=== PATIENT | female | born 1985 | race American Indian/Alaskan Native ===

== ENCOUNTER 2017-02-13 11:41 | Emergency (ER) | payer MEDICAID ==
[2017-02-13 12:37] LABS: Basophils % (Auto) 0.3 % (0.0-1.8); Eosinophils % (Auto) 1.7 % (0.0-4.3); Hematocrit 34.9 % (30.3-42.9); Hemoglobin 11.6 gm/dl (10.1-14.3); Mean Corpuscular HGB Conc 33 % (30-34); Mean Corpuscular Hemoglobin 30 pg (28-32); Mean Corpuscular Volume 91 fl (79-97); Platelet Count 253 K/mm3 (140-440); Red Blood Count 3.83 M/mm3 (3.65-5.03); Red Cell Distribution Width 14.4 % (13.2-15.2); White Blood Count 10.5 K/mm3 (4.5-11.0)
[2017-02-13 12:44] LABS: Amylase 65 units/L (27-131); Anion Gap 18 mmol/L; BUN/Creatinine Ratio 11.42; Blood Urea Nitrogen 8 mg/dL (7-17); Calcium 9.1 mg/dL (8.4-10.2); Carbon Dioxide 19 mmol/L (22-30); Chloride 104.3 mmol/L (98-107); Glucose 98 mg/dL (65-100); Lipase 24 units/L (13-60); Potassium 3.4 mmol/L (3.6-5.0); Sodium 138 mmol/L (137-145)
--- NOTE | 2017-02-13 12:52 | Emergency Department Report ---
Entered by JEMMA DE LEON, acting as scribe for VENKATA MARTIN PA. Chief Complaint: Abdominal Pain Stated Complaint: 17 WKS /SHARP ABD PAIN Time Seen by Provider: 02/13/17 11:58 - HPI History of Present Illness: 31 y/o female presents c/o sharp, intermittent abd pain that started 4 days ago. Pt denies vaginal bleeding or discharge and bleeding during urination. She has one previous and is currently 17 weeks . - ROS Review of Systems: as noted in HPI - Exam Vital Signs: Vital Signs 02/13/17 11:52 Temperature 98.4 F Pulse Rate 109 H Respiratory 20 Rate Blood Pressure 118/80 O2 Sat by Pulse 98 Oximetry General: [31-year-old female] in no acute distress. Well-developed, well- nourished. CV: Regular rate and rhythm. No murmurs rubs or gallops. Lungs: Clear to auscultation bilaterally. Abdomen: No tenderness to palpation. No guarding or rebound tenderness. Normal bowel sounds. Mini Neuro: Alert and oriented 3. MSE screening note: Focused history and physical exam performed. Due to findings the following was ordered: ED Disposition for MSE Condition: Stable Instructions: Abdominal Pain (ED) This documentation as recorded by the scribe,JEMMA DE LEON,accurately reflects the service I personally performed and the decisions made by ,VENKATA MARTIN PA.
[2017-02-13 13:22] LABS: Bacteria,Urine 1+ /HPF (Negative); Bilirubin,Urine NEG (Negative); Blood,Urine MOD (Negative); Ketones,Urine 20 mg/dL (Negative); Leukocyte Esterase,Urine MOD (Negative); Mucus,Urine 3+ /HPF; Nitrite,Urine NEG (Negative); Urobilinogen,Urine < 2.0 mg/dL (<2.0)
--- NOTE | 2017-02-13 15:07 | Ultrasound Report ---
FINAL REPORT EXAM: US OB \T\gt; = 14 WEEKS FETUS HISTORY: abdominal pain TECHNIQUE: Ultrasound evaluation of the gravid uterus PRIORS: None. FINDINGS: There is a single viable intrauterine with documented cardiac activity. Multiple ultrasound measurements are made to determine a composite gestational age. Nonspecific borderline low HC/AC ratio of 1.06, lower limits 1.07. ratios are otherwise within normal limits. There is no evidence of placenta previa or abruption. The maternal cervix is closed. The quantity of visualized amniotic fluid appears grossly normal. No sonographic abnormality in the visualized portion of the anatomy. Heart rate: 153 beats per minute position: Breech Placental position: Posterior, grade 0 Maternal cervix length: 3.7cm Estimated weight: 222 g Growth percentile by ultrasound: 83 Ultrasound estimated gestational age: 17 weeks 5 days Ultrasound estimated delivery date: 07/19/2017 LMP estimated gestational age: 17 weeks 3 days LMP estimated delivery date: 07/21/2017 IMPRESSION: Single viable intrauterine with the above parameters Borderline low HC/AC ratio. Other ratios are normal Breech presentation
--- NOTE | 2017-02-13 18:13 | Emergency Department Report ---
HPI - General Chief Complaint: Abdominal Pain Time Seen by Provider: 02/13/17 11:58 - HPI HPI: This is a 31-year-old Afro-I[place]ian female presents to the emergency department with complaint of abdominal pain at about 17 weeks . The patient is with 2 previous miscarriages. Her [facility] [employer] group is [facility]. She's been having intermittent cramping over the past few weeks but had some sharp pain for the past 5 days. She denies any vaginal bleeding, discharge, dysuria, back pain, fever or any vomiting. She has a past medical history of HPV. Her previous was a vaginal delivery. She is not taken anything for symptoms prior to presentation. No recent travel or sick contacts at home. ED Past Medical Hx - Past Medical History Previous Medical History?: Yes Additional medical history: HPV, Vaginal delivery, "Swine flu during " - Surgical History Past Surgical History?: No - Social History Smoking Status: Former Smoker Substance Use Type: Alcohol, Non Opiate Pain, Prescribed - Medications Home Medications: Home Medications Medication Instructions Recorded Confirmed Last Taken Type Melatonin/Pyridoxine [Melatonin 3 1 each PO QHS #30 tablet 11/09/15 Unknown Rx mg Tablet] Multivitamin with Folic Acid [One 400 mcg PO QDAY #30 tablet 11/09/15 Unknown Rx Daily Multivitamin Tablet] Metoclopramide [Reglan] 10 mg PO QID PRN #15 tab 12/16/16 Unknown Rx ED Review of Systems ROS: Stated complaint: 17 WKS /SHARP ABD PAIN Other details as noted in HPI Comment: All other systems reviewed and negative Constitutional: denies: chills, fever Eyes: denies: eye pain, eye discharge, vision change ENT: denies: ear pain, throat pain Respiratory: denies: cough, shortness of breath, wheezing Cardiovascular: denies: chest pain, palpitations Gastrointestinal: abdominal pain. denies: vomiting Genitourinary: denies: dysuria, hematuria, discharge Musculoskeletal: denies: back pain, joint swelling, arthralgia Skin: denies: rash, lesions Neurological: denies: headache, weakness, paresthesias Physical Exam - Physical Exam Vital Signs: Vital Signs 02/13/17 11:52 Temperature 98.4 F Pulse Rate 109 H Respiratory 20 Rate Blood Pressure 118/80 O2 Sat by Pulse 98 Oximetry Physical Exam: GENERAL: The patient is well-developed well-nourished. HEENT: Normocephalic. Atraumatic. Extraocular motions are intact. Patient has moist mucous membranes. Pupils equal reactive to light bilaterally. NECK: Supple. Trachea is midline.. CHEST/LUNGS: Clear to auscultation. There is no respiratory distress noted. HEART/CARDIOVASCULAR: Regular. There is no tachycardia. There is no gallop rub or murmur. ABDOMEN: Abdomen is soft. No abdominal pain to palpation. There is a gravid uterus palpable a few centimeters below the umbilicus. Patient has normal bowel sounds. There is no abdominal distention. SKIN: Skin is warm and dry. NEURO: The patient is awake, alert, and oriented. The patient is cooperative. The patient has no focal neurologic deficits. The patient has normal speech. MUSCULOSKELETAL: There is no tenderness or deformity. There is no limitation range of motion. There is no evidence of acute injury. ED Course Vital Signs 02/13/17 11:52 Temperature 98.4 F Pulse Rate 109 H Respiratory 20 Rate Blood Pressure 118/80 O2 Sat by Pulse 98 Oximetry ED Medical Decision Making - Lab Data Result diagrams: 02/13/17 12:15 02/13/17 12:15 - Radiology Data Radiology results: report reviewed Ultrasound evaluation of the uterus shows a single viable intrauterine . Breech presentation. Heart rate 153 bpm. - Medical Decision Making 31 year old female presents with some abdominal pain over the past week or so I' ll . Ultrasound confirms a viable intrauterine. Patient has no dysuria, vaginal bleeding or discharge. Patient had a CBC, CMP and urinalysis that did not show any signs of infection the blood in the urine or any other significant abnormalities. Vital signs stable throughout her ED course. Patient currently asymptomatic. She has good follow-up with [employer]. She will be discharged home to follow-up with the [employer], to take Tylenol as needed for discomfort, and to return to the ER with any worsening of her symptoms or any acute distress. - Differential Diagnosis , threatened miscarriage, UTI, spontaneous , fibroids, col Critical Care Time: No Critical care attestation.: If time is entered above; I have spent that time in minutes in the direct care of this critically ill patient, excluding procedure time. ED Disposition Clinical Impression: Qualifiers: Weeks of gestation: 17 weeks Qualified Code(s): Z3A.17 - 17 weeks gestation of Abdominal pain Qualifiers: Abdominal location: unspecified location Qualified Code(s): R10.9 - Unspecified abdominal pain Disposition: DISCHARGED TO HOME OR SELFCARE Is pt being admited?: No Condition: Stable Instructions: Abdominal Pain (ED), (ED) Additional Instructions: Please follow-up with your [employer] in the next few days. Continue with your vitamins. He can take Tylenol every 4 hours, using weight-based dosing , as needed for discomfort. Return to the emergency department with any worsening of your symptoms or any acute distress. Referrals: PRIMARY CARE, [Primary Care Provider] - 3-5 Days [facility] [Provider Group] - 3-5 Days Time of Disposition: 18:13
[2017-02-13 18:37] VITALS: BP 121/57
== END 2017-02-13 18:44 | disposition home or self-care (01) ==
LOC: ED 11:41
DX: O26.892 Other specified pregnancy related conditions, second trimester (principal); R10.9 Unspecified abdominal pain; O99.332 Smoking (tobacco) complicating pregnancy, second trimester; Z3A.17 17 weeks gestation of pregnancy
CPT/HCPCS: 36415; 76805; 80048; 81001; 82150; 83690; 84702; 85025

== ENCOUNTER 2017-03-23 12:06 | Outpatient (CLI) | payer MEDICAID ==
[2017-03-23 13:19] VITALS: BP 115/70
[2017-03-23] MEDS ORDERED: LACTATED RINGERS 500 ML IV ONE (13:20)
[2017-03-23 14:54] LABS: Bacteria,Urine 1+ /HPF (Negative); Bilirubin,Urine NEG (Negative); Blood,Urine SM (Negative); Ketones,Urine NEG (Negative); Leukocyte Esterase,Urine LG (Negative); Mucus,Urine 2+ /HPF; Nitrite,Urine NEG (Negative); Protein,Urine <15 mg/dL mg/dL (Negative); Urobilinogen,Urine < 2.0 mg/dL (<2.0)
== END 2017-03-23 15:38 | disposition home or self-care (01) ==
LOC: TRG 12:06
PROVIDERS: ATTEND Obstetrics & Gynecology
DX: O47.02 False labor before 37 completed weeks of gestation, second trimester (principal); Z3A.22 22 weeks gestation of pregnancy
CPT/HCPCS: 81001

== ENCOUNTER 2017-04-01 22:56 | Outpatient (CLI) | payer MEDICAID ==
[2017-04-01 23:15] VITALS: BP 116/70
[2017-04-01] MEDS ORDERED: LACTATED RINGERS 1,000 ML IV SCH (23:45)
[2017-04-01] MEDS ORDERED: LACTATED RINGERS 500 ML IV ONE (23:47)
[2017-04-02] MEDS: BRETHINE SUB-Q SCH ×2 (01:11→01:30)
[2017-04-02 01:32] LABS: Bilirubin,Urine NEG (Negative); Blood,Urine SM (Negative); Ketones,Urine NEG (Negative); Leukocyte Esterase,Urine NEG (Negative); Mucus,Urine FEW /HPF; Nitrite,Urine NEG (Negative); Protein,Urine <15 mg/dL mg/dL (Negative); Urobilinogen,Urine < 2.0 mg/dL (<2.0)
== END 2017-04-02 03:10 | disposition home or self-care (01) ==
LOC: TRG 22:56
PROVIDERS: ATTEND Obstetrics & Gynecology
DX: O47.02 False labor before 37 completed weeks of gestation, second trimester (principal); Z3A.24 24 weeks gestation of pregnancy
CPT/HCPCS: 36415; 81001; 82731; 96360; 96372; J3105

== ENCOUNTER 2017-04-02 18:56 | Outpatient (CLI) | payer MEDICAID ==
[2017-04-02] MEDS ORDERED: CELESTONE SOLUSPAN IM ONE ×2 (19:29→19:46)
== END 2017-04-02 20:14 | disposition home or self-care (01) ==
LOC: TRG 18:56
PROVIDERS: ATTEND Obstetrics & Gynecology
DX: O36.0130 Maternal care for anti-D [Rh] antibodies, third trimester, not applicable or unspecified (principal); Z3A.34 34 weeks gestation of pregnancy
CPT/HCPCS: 96372; J0702

== ENCOUNTER 2017-04-03 19:39 | Outpatient (CLI) | payer MEDICAID ==
[2017-04-03] MEDS ORDERED: CELESTONE SOLUSPAN IM ONE (19:46)
[2017-04-03 19:54] VITALS: BP 126/67
== END 2017-04-03 20:15 | disposition home or self-care (01) ==
LOC: TRG 19:39
PROVIDERS: ATTEND Obstetrics & Gynecology
DX: O36.0120 Maternal care for anti-D [Rh] antibodies, second trimester, not applicable or unspecified (principal); Z3A.24 24 weeks gestation of pregnancy
CPT/HCPCS: 96372; J0702

== ENCOUNTER 2017-07-26 10:37 | Inpatient (IN) | payer MEDICAID ==
[2017-07-26] MEDS ORDERED: PITOCin/NS 30 UNIT/500ML 30 UNITS/500 ML BAG IV SCH (12:30)
[2017-07-26] MEDS ORDERED: ZOFRAN IV PRN ×2 (12:31→19:55)
[2017-07-26] MEDS ORDERED: STADOL IV PRN (12:31)
[2017-07-26] MEDS ORDERED: NARCAN 0.4 MG/1 ML IV PRN (12:31)
[2017-07-26] MEDS ORDERED: SUBLIMAZE IV PRN (12:31)
[2017-07-26] MEDS ORDERED: ePHEDrine SULFATE IV PRN ×2 (12:31→15:30)
[2017-07-26] MEDS ORDERED: MINERAL OIL PO PRN (12:31)
[2017-07-26] MEDS ORDERED: BRETHINE SUB-Q PRN (12:31)
[2017-07-26] MEDS ORDERED: XYLOCAINE 2% INFILTRATI ONE (12:31)
[2017-07-26] MEDS ORDERED: BRETHINE IVP PRN (12:31)
[2017-07-26 12:56] LABS: Hematocrit 36.8 % (30.3-42.9); Hemoglobin 12.1 gm/dl (10.1-14.3); Mean Corpuscular HGB Conc 33 % (30-34); Mean Corpuscular Hemoglobin 30 pg (28-32); Mean Corpuscular Volume 92 fl (79-97); Platelet Count 221 K/mm3 (140-440); Red Cell Distribution Width 14.5 % (13.2-15.2)
[2017-07-26] MEDS: LACTATED RINGERS 1,000 ML IV SCH ×3 (12:57→15:22)
[2017-07-26] MEDS ORDERED: ceFAZolin 2 GM in NACL 0.9% 100 ML IV ONE (12:59)
[2017-07-26] MEDS ORDERED: LACTATED RINGERS 1,000 ML IV SCH (13:00)
[2017-07-26] MEDS ORDERED: PITOCin/NS 20 UNIT/1000ML DRIP 20 UNITS/1,000 ML BAG IV SCH (13:00)
[2017-07-26] MEDS: PITOCin/NS 30 UNIT/500ML 30 UNITS/500 ML BAG IV SCH ×2 (13:07→13:48)
[2017-07-26] MEDS ORDERED: NACL 0.9% IV SCH (14:00)
[2017-07-26] MEDS ORDERED: CLAFORAN IV SCH (14:00)
--- NOTE | 2017-07-26 14:54 | Anesthesia Consultation ---
Anesthesia Consult and Med Hx Date of service: 07/26/17 - Airway Anesthetic Teeth Evaluation: Good ROM Head & Neck: Adequate Mental/Hyoid Distance: Adequate Mallampati Class: Class II Intubation Access Assessment: Probably Good - Pre-Operative Health Status ASA Pre-Surgery Classification: ASA2 Proposed Anesthetic Plan: Epidural, Spinal - Pulmonary Hx Smoking: Yes (former smoker) Hx Asthma: No COPD: No Hx Pneumonia: No - Cardiovascular System Hx Hypertension: No - Central Nervous System Hx Seizures: No Hx Psychiatric Problems: No - Endocrine Hx Renal Disease: No Hx End Stage Renal Disease: No Hx Hypothyroidism: No Hx Hyperthyroidism: No - Hematic Hx Anemia: No Hx Sickle Cell Disease: No - Other Systems Hx Alcohol Use: Yes Hx Obesity: Yes (BMI 37.2)
[2017-07-26] MEDS ORDERED: fentaNYL-BUPIV 2 MCG/ML-0.125% 200 MCG/100 ML BAG EPIDURAL SCH (15:00)
[2017-07-26] MEDS ORDERED: NARCAN 2 MG/2 ML IV PRN (15:30)
[2017-07-26] MEDS ORDERED: XYLOCAINE MPF 2% ONE (16:12)
[2017-07-26] MEDS ORDERED: METHERGINE IM ONE (19:14)
--- NOTE | 2017-07-26 19:49 | Procedure Note ---
OB Delivery Note - Delivery Date of Delivery: 07/26/17 Surgeon: KAYDEN HOLLIDAY Estimated blood loss: 500cc - Vaginal Delivery presentation: vertex Delivery position: OA Intrapartum events: none Delivery augmentation: pitocin Delivery monitor: external FHT, external uterine Route of delivery: Delivery cord: 3 umbilical vessels Episiotomy: none Delivery laceration: 2nd degree, vaginal side wall Delivery repair: vicryl Anesthesia: epidural Delivery comments: Patient progressed to C/C/+1 and pushed to deliver a liveborn male infant with apgars of 8/9 and weight of 7lbs 5oz. After delivery of the head, the shoulders delivered easily at 1907. The cord was clamped and cut and infant was placed on the patient's abdomen. The placenta delivered spontaneously intact with a 3VC at 1912. The patient sustained a midline 2nd degree laceration repaired with 2- 0 vicryl. and side wall laceration right repaired with 3-0 vicryl excellent hemostasis noted. EBL 500ml - Infant A at 1 minute: 8 at 5 minutes: 9 Gender: Male
[2017-07-26] MEDS ORDERED: PHENERGAN PO PRN (19:55)
[2017-07-26] MEDS ORDERED: MILK OF MAGNESIA PO PRN (19:55)
[2017-07-26] MEDS ORDERED: PHENERGAN PR PRN (19:55)
[2017-07-26] MEDS ORDERED: DULCOLAX PR PRN (19:55)
[2017-07-26] MEDS ORDERED: TYLENOL PO PRN (19:55)
[2017-07-26] MEDS ORDERED: TORADOL IV PRN (19:55)
[2017-07-26] MEDS ORDERED: TUCKS PAD TP PRN (19:55)
[2017-07-26] MEDS ORDERED: LANSINOH TP PRN (19:55)
[2017-07-26] MEDS ORDERED: BENADRYL PO PRN (19:55)
[2017-07-26] MEDS ORDERED: PERCOCET 5/325 PO PRN (19:55)
[2017-07-26] MEDS: PITOCin/NS 20 UNIT/1000ML DRIP 20 UNITS/1,000 ML BAG IV SCH ×2 (20:00→20:05)
[2017-07-26] MEDS ORDERED: SODIUM CHLORIDE FLUSH SYRINGE 10 ML IV NR (20:00)
[2017-07-26] MEDS ORDERED: ceFAZolin 2 GM in NACL 0.9% 100 ML IV SCH (22:00)
[2017-07-26] MEDS ORDERED: COLACE PO SCH (22:00)
[2017-07-26] MEDS: COLACE PO SCH (22:50)
[2017-07-26] MEDS: MOTRIN PO SCH (22:51)
[2017-07-27] MEDS: NORCO 5/325 PO PRN ×2 (01:14→13:59)
[2017-07-27] MEDS: MOTRIN PO SCH ×4 (02:05→20:53)
[2017-07-27] MEDS ORDERED: BOOSTRIX IM ONE ×2 (06:00→19:55)
[2017-07-27 08:14] LABS: Hematocrit 33.6 % (30.3-42.9)
--- NOTE | 2017-07-27 08:41 | Progress Note ---
Assessment and Plan - Patient Problems (1) Active labor at term Current Visit: Yes Status: Acute Plan to address problem: Patient doing well Discharge home tomorrow Subjective - Subjective Date of service: 07/27/17 Interval history: The patient is without complaints. She is tolerating a regular diet without complication. Her pain is well-controlled. Lochia is decreasing. Patient reports: appetite normal, voiding normally, pain well controlled Osteen: doing well Objective - Vital Signs Latest vital signs: Vital Signs Temp Pulse Resp BP BP Pulse Ox 07/27/17 04:34 98.5 F 74 16 106/60 07/27/17 01:15 98.4 F 75 20 114/56 07/27/17 01:14 18 07/26/17 22:51 16 07/26/17 21:29 98.5 F 82 18 105/69 07/26/17 21:01 75 114/69 07/26/17 20:46 76 122/74 07/26/17 20:31 84 117/64 07/26/17 20:16 101 H 129/74 07/26/17 20:01 97 H 115/72 07/26/17 19:46 100 H 116/63 07/26/17 19:31 85 116/65 07/26/17 19:30 98.2 F 16 07/26/17 19:16 102 H 120/69 07/26/17 19:13 99 H 124/64 07/26/17 18:46 74 113/61 07/26/17 18:32 70 116/60 07/26/17 18:18 129 H 110/65 07/26/17 18:02 74 113/58 07/26/17 17:47 75 102/55 07/26/17 17:32 83 101/55 07/26/17 17:17 99 H 115/61 07/26/17 17:12 118 H 83 L 07/26/17 17:07 104 H 100 07/26/17 17:02 75 100 07/26/17 17:01 76 107/60 07/26/17 16:57 86 100 07/26/17 16:52 82 100 07/26/17 16:47 78 110/68 100 07/26/17 16:42 78 100 07/26/17 16:37 88 100 07/26/17 16:32 96 H 108/58 100 07/26/17 16:27 78 100 07/26/17 16:22 94 H 100 07/26/17 16:17 88 100 07/26/17 16:16 86 121/69 07/26/17 16:12 89 98 07/26/17 16:07 94 H 99 07/26/17 16:02 102 H 114/65 99 07/26/17 15:56 101 H 99 07/26/17 15:51 100 H 99 07/26/17 15:46 88 114/88 100 07/26/17 15:45 96 H 126/74 07/26/17 15:41 88 125/70 98 07/26/17 15:36 105 H 99 07/26/17 15:34 104 H 113/69 07/26/17 15:31 102 H 100 07/26/17 15:30 90 117/71 07/26/17 15:26 102 H 126/71 100 07/26/17 15:21 95 H 100 07/26/17 15:19 107 H 126/67 07/26/17 15:16 97 H 125/71 100 07/26/17 15:11 105 H 100 07/26/17 15:10 98 H 121/68 07/26/17 15:08 96 H 126/69 07/26/17 15:07 96 H 121/68 07/26/17 15:06 102 H 100 07/26/17 15:05 99 H 128/78 07/26/17 15:03 100 H 121/75 94 07/26/17 15:01 103 H 126/80 100 07/26/17 14:59 97 H 123/72 07/26/17 14:57 92 H 123/71 07/26/17 14:56 98 H 100 07/26/17 14:55 93 H 129/76 07/26/17 14:52 105 H 129/74 07/26/17 14:51 100 H 124/75 100 07/26/17 14:49 93 H 124/74 07/26/17 14:47 92 H 115/66 07/26/17 14:46 94 H 100 07/26/17 14:44 88 110/61 07/26/17 14:43 92 H 112/65 07/26/17 14:41 89 100 07/26/17 14:38 96 H 125/68 07/26/17 14:36 100 H 100 07/26/17 14:34 98.0 F 98 H 20 125/68 100 07/26/17 13:52 104 H 123/77 07/26/17 13:10 96 H 110/71 07/26/17 11:03 88 121/74 07/26/17 11:02 98.9 F 88 20 121/74 Intake and Output 07/26/17 07/27/17 07/27/17 22:59 06:59 14:59 Intake Total 172.917 840 Output Total 250 1700 Balance -77.083 -860 Intake: IV 172.917 Lactated Ringers 1,000 ml 162.5 @ 125 mls/hr IV DIRECT DEVIN Rx#:[id number] PITOCin/NS 20 UNIT/1000ML 10.417 DRIP 20 units In 1,000 ml @ 125 mls/hr IV DIRECT DEVIN Rx#:[id number] Intake, Free Water 840 Output: Urine 250 1700 Indwelling Catheter 250 Void 1700 Other: Total, Output Amount 250 900 Estimated Blood Loss 500 - Exam Uterus: Present: normal, firm
[2017-07-27] MEDS: SENOKOT S PO SCH ×2 (08:56→20:54)
[2017-07-27] MEDS ORDERED: Fluarix Quad 2017-2018(36 MOS+) IM ONE (12:14)
[2017-07-27] MEDS: PRENATAL VITAMIN PO SCH (12:30)
[2017-07-27] MEDS: COLACE PO SCH ×2 (12:31→21:20)
--- NOTE | 2017-07-27 15:34 | History and Physical Report ---
History of Present Illness Date of examination: 07/26/17 Date of admission: 07/26/17 10:37 Chief complaint: rupture of membranes History of present illness: 31 yo early second trimester U/S EDC 07/21/17 @ 40.6 weeks gestation presented to office with SROM clear fluid that occurred prior to office visit. Entry into care at 13.5 weeks gestation. care complicated by morbid obesity with early GCT of 110. 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 Started of Valtrex at 36 weeks. Also had a limited anatomy scan with repeat by [facility] and all organs viewed. History of depression. She is positive for GBS with PCN allergy. Past History Past Medical History: other (depression) Past Surgical History: no surgical history T[employer]ER History: abnormal PAP smear, herpes Family/Genetic History: heart disease, hypertension Social history: no significant social history, single, lives with family - Obstetrical History Expected Date of Delivery: 07/21/17 Actual Gestation: 40 Week(s) 6 Day(s) : 3 Para: 2 Hx # Term Pregnancies: 2 Number of Living Children: 2 Medications and Allergies Allergies Allergy/AdvReac Type Severity Reaction Status Date / Time Penicillins Allergy Severe Hives Verified 03/23/17 13:20 Home Medications Medication Instructions Recorded Confirmed Last Taken Type Melatonin/Pyridoxine [Melatonin 3 1 each PO QHS #30 tablet 11/09/15 07/26/17 Unknown Rx mg Tablet] Multivitamin with Folic Acid [One 400 mcg PO QDAY #30 tablet 11/09/15 07/26/17 07/25/17 21:00 Rx Daily Multivitamin Tablet] Metoclopramide [Reglan] 10 mg PO QID PRN #15 tab 12/16/16 07/26/17 Unknown Rx Docusate Sodium [Colace] 100 mg PO BID PRN #30 capsule 07/26/17 Unknown Rx Ibuprofen [Motrin] 600 mg PO Q8H PRN #30 tablet 07/26/17 Unknown Rx oxyCODONE /ACETAMINOPHEN [Percocet 1 tab PO Q6HR PRN #30 tablet 07/26/17 Unknown Rx 5/325] Active Meds: Active Medications Acetaminophen (Tylenol) 650 mg PO Q4H PRN PRN Reason: Pain MILD(1-3)/Fever >100.5/GARCIA Acetaminophen/Hydrocodone Bitart ([place] 5/325) 2 each PO Q6H PRN PRN Reason: Pain, Moderate (4-6) Last Admin: 07/27/17 13:59 Dose: 2 each Bisacodyl (Dulcolax) 10 mg KS BID PRN PRN Reason: Constipation Butorphanol Tartrate (Stadol) 2 mg IV Q2H PRN PRN Reason: Pain , Severe (7-10) Last Admin: 07/26/17 14:01 Dose: 2 mg Diphenhydramine HCl (Benadryl) 25 mg PO Q6H PRN PRN Reason: Itching Docusate Sodium (Colace) 100 mg PO BID DEVIN Last Admin: 07/27/17 12:31 Dose: Not Given Fentanyl (Sublimaze) 100 mcg IV Q2H PRN PRN Reason: Labor Pain Lactated Ringer's (Lactated Ringers) 1,000 mls @ 125 mls/hr IV DIRECT DEVIN Last Admin: 07/26/17 15:22 Dose: 125 mls/hr Oxytocin/Sodium Chloride (Pitocin/Ns 20 Unit/1000ml Drip) 20 units in 1,000 mls @ 125 mls/hr IV DIRECT DEVIN Oxytocin/Sodium Chloride (Pitocin/Ns 30 Unit/500ml) 30 units in 500 mls @ 4 mls /hr IV TITR DEVIN PRN Reason: Protocol Last Admin: 07/26/17 13:48 Dose: 2 ml/hr, 2 mls/hr Lactated Ringer's (Lactated Ringers) 1,000 mls @ 125 mls/hr IV DIRECT DEVIN Oxytocin/Sodium Chloride (Pitocin/Ns 20 Unit/1000ml Drip) 20 units in 1,000 mls @ 125 mls/hr IV DIRECT DEVIN Last Admin: 07/26/17 20:05 Dose: 125 mls/hr Oxytocin/Sodium Chloride (Pitocin/Ns 30 Unit/500ml) 30 units in 500 mls @ 4 mls /hr IV TITR DEVIN PRN Reason: Protocol Fentanyl/Bupivacaine/Sodium Chlor (Fentanyl-Bupiv 2 Mcg/Ml-0.125%) 200 mcg in 100 mls @ 12 mls/hr EPIDURAL TITR DEVIN PRN Reason: Protocol Last Admin: 07/26/17 15:30 Dose: 12 mls/hr Cefazolin Sodium 2 gm/ Sodium (Chloride) 100 mls @ 200 mls/hr IV Q8H [facility] Ibuprofen (Motrin) 600 mg PO Q6H [facility] Last Admin: 07/27/17 08:57 Dose: 600 mg Ketorolac Tromethamine (Toradol) 30 mg IV Q6H PRN PRN Reason: Pain, Moderate (4-6) Stop: 07/31/17 19:54 Magnesium Hydroxide (Milk Of Magnesia) 30 ml PO HS PRN PRN Reason: Constipation Measles/Mumps/Rubella Vaccine Live (M-M-R Ii Vaccine) 0.5 ml SUB-Q .ONCE ONE Stop: 07/27/17 19:56 Mineral Oil (Mineral Oil) 30 ml PO QHS PRN PRN Reason: Constipation Multi-Ingredient Ointment (Lansinoh) 1 applic TP PRN PRN PRN Reason: Sore Nipples Multivitamins/Iron/Calcium ( Vitamin) 1 each PO QDAY [facility] Last Admin: 07/27/17 12:30 Dose: 1 each Naloxone HCl (Narcan 0.4 Mg/1 Ml) 0.1 mg IV Q2MIN PRN PRN Reason: Res Rate </= 8 or 02 SAT < 92% Ondansetron HCl (Zofran) 4 mg IV Q8H PRN PRN Reason: Nausea And Vomiting Ondansetron HCl (Zofran) 4 mg IV Q8H PRN PRN Reason: Nausea And Vomiting Oxycodone/Acetaminophen (Percocet 5/325) 1 tab PO Q6H PRN PRN Reason: Pain, Moderate (4-6) Promethazine HCl (Phenergan) 25 mg KS Q6H PRN PRN Reason: Nausea And Vomiting Promethazine HCl (Phenergan) 25 mg PO Q6H PRN PRN Reason: Nausea And Vomiting Senna/Docusate Sodium (Senokot S) 2 tab PO Q12H [facility] Last Admin: 07/27/17 08:56 Dose: Not Given Sodium Chloride (Sodium Chloride Flush Syringe 10 Ml) 10 ml IV PRN NR Stop: 07/29/17 19:59 Witch Lori/Glycerin (Tucks Pad) 1 each TP PRN PRN PRN Reason: Hemorrhoid/cleansing/soothing Last Admin: 07/26/17 22:52 Dose: 1 each Review of Systems All systems: negative Genitourinary: normal appearance, leakage of fluid - Vital Signs Vital signs: Vital Signs Temp Pulse Resp BP 98.9 F 88 20 121/74 07/26/17 11:02 07/26/17 11:02 07/26/17 11:02 07/26/17 11:02 Temp Pulse Resp BP Pulse Ox 98.5 F 74 20 118/76 83 L 07/27/17 08:12 07/27/17 04:34 07/27/17 08:57 07/27/17 08:12 07/26/17 17:12 - Physical Exam Lungs: Positive: Normal air movement Abdomen: Positive: normal appearance - Obstetrical FHR: auscultation normal Uterine Contraction Monitor Mode: External Cervical Dilatation: 5 Cervical Effacement Percentage: 90 station: -2 Uterine Contraction Pattern: Absent Uterine Tone Measurement Phase: Resting Results Result Diagrams: 07/27/17 08:04 All other labs normal. Assessment and Plan A: IUP at 40.36 weeks SROM-clear fluid Advanced cervical dilitaion +GBS, PCN allergy P: GBS prophylaxis Pitocin augmentation Anticipate
[2017-07-27] MEDS ORDERED: M-M-R II VACCINE SUB-Q ONE (19:55)
[2017-07-28] MEDS: MOTRIN PO SCH ×3 (02:00→17:06)
--- NOTE | 2017-07-28 10:19 | Discharge Summary ---
Providers - Providers Date of Admission: 07/26/17 10:37 Date of discharge: 07/28/17 Attending physician: KAYDEN HOLLIDAY MD Primary care physician: KAYDEN HOLLIDAY MD Hospitalization Reason for admission: rupture of membranes Delivery: Procedure details: Please see delivery note. Episiotomy: none Laceration: vaginal side wall, 2nd degree Incision: normal Other procedures: none complications: none Discharge diagnosis: IUP at term delivered [place] baby: male Hospital course: Pt was admitted for rupture of membranes and went on to have a vaginal delivery which she tolerated well. Her course was uncomplicated and she met discharge criteria on PPD#2. She will follow up in the office in 4 wks for exam. Condition at discharge: Stable Disposition: -01 TO HOME OR SELFCARE - Discharge Diagnoses (1) Spontaneous rupture of membranes Status: Acute (2) Obesity Status: Acute Qualifiers: Obesity type: unspecified obesity type Obesity classification: adult class 2 (BMI 35 ? 39.9) Serious obesity comorbidity presence: unspecified whether serious comorbidity present Body mass index: BMI 37.0-37.9 Qualified Code(s) : E66.9 - Obesity, unspecified; Z68.37 - Body mass index (BMI) 37.0-37.9, adult (3) Term of male Status: Acute Plan - Discharge Medications Prescriptions: Docusate Sodium [Colace] 100 mg PO BID PRN #30 capsule PRN Reason: Constipation Ibuprofen [Motrin] 600 mg PO Q8H PRN #30 tablet PRN Reason: Pain oxyCODONE /ACETAMINOPHEN [Percocet 5/325] 1 tab PO Q6HR PRN #30 tablet PRN Reason: Pain - Provider Discharge Summary Activity: routine, no sex for 6 weeks, no heavy lifting 4 weeks, no strenuous exercise Diet: routine Instructions: routine Additional instructions: [] Smoking cessation referral if applicable(refer to patient education folder for contact #) [] Refer to [facility] Center Booklet Call your doctor immediately for: * Fever > 100.5 * Heavy vaginal bleeding ( >1 pad per hour) * Severe persistent headache * Shortness of breath * Reddened, hot, painful area to leg or breast * Drainage or odor from incision. * Keep incision clean and dry at all times and follow doctor's instructions regarding bathing/showering - Follow up plan Follow up: GEN MILES CNM [Advanced Practice Nurse] - 08/23/17 ( exam )
--- NOTE | 2017-07-28 10:19 | Progress Note ---
Assessment and Plan A: PPD#2 s/p at term, Obesity P: Routine care. Discharge later today with follow up in office in 4 wks. Subjective - Subjective Date of service: 07/28/17 Principal diagnosis: s/p at term, obesity Interval history: Pt without complaints. She is sad because her baby was moved to the NICU yesterday for elevated bilirubin. Otherwise she has no complaints. Patient reports: appetite normal, voiding normally, pain well controlled, ambulating normally, no dizzy ambulation [place]: in NICU (elevated bilirubin) Objective - Vital Signs Latest vital signs: Vital Signs Temp Pulse Resp BP BP 07/28/17 08:34 98.7 F 18 113/73 07/28/17 00:20 98.6 F 71 16 115/76 07/27/17 21:53 16 07/27/17 20:53 16 07/27/17 18:08 24 07/27/17 17:52 98.2 F 16 120/75 07/27/17 14:59 20 07/27/17 12:00 98.0 F 72 18 118/78 Intake and Output 07/27/17 07/28/17 07/28/17 22:59 06:59 14:59 Intake Total 500 Balance 500 Intake: Oral 200 Intake, Free Water 300 Other: Total, Intake Amount 200 - Exam Breasts: Present: deferred Cardiovascular: Present: Regular rate Lungs: Present: Clear to auscultation Abdomen: Present: soft (obese ) Uterus: Present: fundal height below umbilicus Extremities: Present: normal
[2017-07-28] MEDS: PRENATAL VITAMIN PO SCH (10:36)
[2017-07-28] MEDS: SENOKOT S PO SCH (10:36)
[2017-07-28] MEDS ORDERED: M-M-R II VACCINE SUB-Q ONE (15:30)
[2017-07-28] MEDS: NORCO 5/325 PO PRN (17:05)
[2017-07-28 17:46] VITALS: BP 116/75
== END 2017-07-28 19:00 | disposition home or self-care (01) | DRG 774 ==
LOC: LD 10:37 → OB 21:12
PROVIDERS: ADMIT Obstetrics & Gynecology; ATTEND Obstetrics & Gynecology
PROC: 10E0XZZ Delivery of Products of Conception, External Approach (ICD-10-PCS; principal; 2017-07-26)
PROC: 0KQM0ZZ Repair Perineum Muscle, Open Approach (ICD-10-PCS; 2017-07-26)
PROC: 3E0R3BZ Introduction of Anesthetic Agent into Spinal Canal, Percutaneous Approach (ICD-10-PCS; 2017-07-26)
PROC: 00HU33Z Insertion of Infusion Device into Spinal Canal, Percutaneous Approach (ICD-10-PCS; 2017-07-26)
DX: O42.92 Full-term premature rupture of membranes, unspecified as to length of time between rupture and onset of labor (principal); O98.52 Other viral diseases complicating childbirth; O99.824 Streptococcus B carrier state complicating childbirth; O99.214 Obesity complicating childbirth; E66.01 Morbid (severe) obesity due to excess calories; O70.1 Second degree perineal laceration during delivery; O99.344 Other mental disorders complicating childbirth; F32.9 Major depressive disorder, single episode, unspecified; Z88.0 Allergy status to penicillin; Z82.49 Family history of ischemic heart disease and other diseases of the circulatory system; Z3A.40 40 weeks gestation of pregnancy; Z37.0 Single live birth; Z68.37 Body mass index [BMI] 37.0-37.9, adult; Z79.899 Other long term (current) drug therapy; B00.9 Herpesviral infection, unspecified
CPT/HCPCS: 36415; 85014; 85018; 85027; 86592; 86850; 86900; 86901; 90471; 90686; 90707; 90715; 99211; G0008; G0463; J0595; J0690; J0698; J2210; J2590; J7120

== ENCOUNTER 2019-07-14 13:27 | Emergency (ER) | payer MEDICAID ==
[2019-07-14 13:34] VITALS: BP 140/69
[2019-07-14 13:54] LABS: Basophils # (Auto) 0.1 K/mm3 (0.0-0.1); Basophils % (Auto) 0.7 % (0.0-1.8); Eosinophils # (Auto) 0.2 K/mm3 (0.0-0.4); Eosinophils % (Auto) 2.2 % (0.0-4.3); Hematocrit 39.3 % (30.3-42.9); Hemoglobin 13.3 gm/dl (10.1-14.3); Lymphocytes % (Auto) 36.4 % (13.4-35.0); Mean Corpuscular HGB Conc 34 % (30-34); Mean Corpuscular Volume 94 fl (79-97); Monocytes # (Auto) 0.6 K/mm3 (0.0-0.8); Monocytes % (Auto) 7.3 % (0.0-7.3); Platelet Count 313 K/mm3 (140-440); Red Cell Distribution Width 12.9 % (13.2-15.2)
[2019-07-14 14:19] LABS: Alanine Aminotransferase 9 units/L (7-56); Albumin 4.4 g/dL (3.9-5); BUN/Creatinine Ratio 17; Blood Urea Nitrogen 15 mg/dL (7-17); Hemolysis Index 14
--- NOTE | 2019-07-14 14:37 | Emergency Department Report ---
ED Dysuria HPI - HPI Chief Complaint: Back Pain/Injury Stated Complaint: LFT SIDE PAIN 3WKS Time Seen by Provider: 07/14/19 14:35 Severity: Mild Symptoms: Dysuria: No, Frequency: No, Suprapubic Pain: No, Flank Pain: No, F ever: No, Hematuria: No, Abdominal Pain: No, Previous UTI's: No Other History: PT IS A 33 YO WHO COMES TO ER WITH A/C LLQ PAIN. SHE HAD A FULL WORK UP AT [facility] LAST WEEK AND WAS TOLD NOTHING WAS WRONG. SHE COMES TODAY FOR US TO CHECK HER IUD - BECAUSE [facility] DID NOT. SHE THINKS HER PAIN IS FROM THE IUD WHICH WAS PLACED 2 YEARS AGO. [facility] SHE HAS NOT BEEN TO THEM DUE TO LOSS OF INSURANCE. NO FEVER OR CHILLS. NO VAG BLEED OR DC. AMBULATORY AND NONTOXIC ON EXAM. ED Review of Systems ROS: Stated complaint: LFT SIDE PAIN 3WKS Other details as noted in HPI Comment: All other systems reviewed and negative ED Past Medical Hx - Past Medical History Hx Hypertension: No Hx Congestive Heart Failure: No Hx Diabetes: No Hx Deep Vein Thrombosis: No Hx Renal Disease: No Hx Sickle Cell Disease: No Hx Seizures: No Hx Asthma: No Hx COPD: No Hx HIV: No Additional medical history: HPV, Vaginal delivery, "Swine flu during " - Social History Smoking Status: Current Every Day Smoker Substance Use Type: None - Medications Home Medications: Home Medications Medication Instructions Recorded Confirmed Last Taken Type Melatonin/Pyridoxine [Melatonin 3 1 each PO QHS #30 tablet 11/09/15 07/26/17 Unknown Rx mg Tablet] Multivitamin with Folic Acid [One 400 mcg PO QDAY #30 tablet 11/09/15 07/26/17 07/25/17 21:00 Rx Daily Multivitamin Tablet] Metoclopramide [Reglan] 10 mg PO QID PRN #15 tab 12/16/16 07/26/17 Unknown Rx Docusate Sodium [Colace] 100 mg PO BID PRN #30 capsule 07/26/17 Unknown Rx Ibuprofen [Motrin] 600 mg PO Q8H PRN #30 tablet 07/26/17 Unknown Rx oxyCODONE /ACETAMINOPHEN [Percocet 1 tab PO Q6HR PRN #30 tablet 07/26/17 Unknown Rx 5/325] Dysuria Exam - Exam General: Vital signs noted. No distress. Alert and acting appropriately. Exam: Yes Moist Mucous Membranes, No CVA Tenderness, No Abdominal Tenderness, No Rigidity or Guarding Labs: Lab Results 07/14/19 07/14/19 07/14/19 Range/Units 13:37 13:37 13:37 WBC 8.1 (4.5-11.0) K/mm3 RBC 4.20 (3.65-5.03) M/mm3 Hgb 13.3 (10.1-14.3) gm/dl Hct 39.3 (30.3-42.9) % MCV 94 (79-97) fl MCH 32 (28-32) pg MCHC 34 (30-34) % RDW 12.9 L (13.2-15.2) % Plt Count 313 (140-440) K/mm3 Lymph % (Auto) 36.4 H (13.4-35.0) % [place] % (Auto) 7.3 (0.0-7.3) % Eos % (Auto) 2.2 (0.0-4.3) % Baso % (Auto) 0.7 (0.0-1.8) % Lymph # 3.0 (1.2-5.4) K/mm3 [place] # 0.6 (0.0-0.8) K/mm3 Eos # 0.2 (0.0-0.4) K/mm3 Baso # 0.1 (0.0-0.1) K/mm3 Seg Neutrophils % 53.4 (40.0-70.0) % Seg Neutrophils # 4.3 (1.8-7.7) K/mm3 Sodium 139 (137-145) mmol/L Potassium 3.8 (3.6-5.0) mmol/L Chloride 102.6 (98-107) mmol/L Carbon Dioxide 24 (22-30) mmol/L Anion Gap 16 mmol/L BUN 15 (7-17) mg/dL Creatinine 0.9 (0.7-1.2) mg/dL Estimated GFR > 60 ml/min BUN/Creatinine Ratio 17 % Glucose 89 (65-100) mg/dL Calcium 9.0 (8.4-10.2) mg/dL Total Bilirubin 0.30 (0.1-1.2) mg/dL AST 12 (5-40) units/L ALT 9 (7-56) units/L Alkaline Phosphatase 74 (35-129) units/L Total Protein 7.5 (6.3-8.2) g/dL Albumin 4.4 (3.9-5) g/dL Albumin/Globulin Ratio 1.4 % HCG, Qual Negative (Negative) ED Course Vital Signs 07/14/19 13:32 Temperature 98.3 F Pulse Rate 89 Respiratory 16 Rate Blood Pressure 140/69 O2 Sat by Pulse 99 Oximetry ED Medical Decision Making - Lab Data Result diagrams: 07/14/19 13:37 07/14/19 13:37 - Medical Decision Making Labs 07/14/19 07/14/19 07/14/19 13:37 13:37 13:37 WBC 8.1 RBC 4.20 Hgb 13.3 Hct 39.3 MCV 94 MCH 32 MCHC 34 RDW 12.9 L Plt Count 313 Lymph % (Auto) 36.4 H [place] % (Auto) 7.3 Eos % (Auto) 2.2 Baso % (Auto) 0.7 Lymph # 3.0 [place] # 0.6 Eos # 0.2 Baso # 0.1 Seg Neutrophils % 53.4 Seg Neutrophils # 4.3 Sodium 139 Potassium 3.8 Chloride 102.6 Carbon Dioxide 24 Anion Gap 16 BUN 15 Creatinine 0.9 Estimated GFR > 60 BUN/Creatinine Ratio 17 Glucose 89 Calcium 9.0 Total Bilirubin 0.30 AST 12 ALT 9 Alkaline Phosphatase 74 Total Protein 7.5 Albumin 4.4 Albumin/Globulin Ratio 1.4 HCG, Qual Negative Vital Signs 07/14/19 13:32 Temperature 98.3 F Pulse Rate 89 Respiratory 16 Rate Blood Pressure 140/69 O2 Sat by Pulse 99 Oximetry DISCUSSED WITH PT THE RESULTS OF HER TESTS TODAY. SHE WANTS HER IUD CHECKED; SHE STATES IT IS TIME FOR IT TO COME OUT. PT EDUCATED THAT NO ER MANAGES IUD'S AND THAT SHE WOULD NEED TO SEE OBGYN. SHE HAS BEEN DC FROM THE ER WITH OBGYN FOLLOW UP. - Differential Diagnosis RO PREG/RO UTI Critical care attestation.: If time is entered above; I have spent that time in minutes in the direct care of this critically ill patient, excluding procedure time. ED Disposition Clinical Impression: Chronic abdominal pain Disposition: DC-01 TO HOME OR SELFCARE Is pt being admited?: No Does the pt Need Aspirin: No Condition: Stable Additional Instructions: FOLLOW UP WITH OBGYN WE DISCUSSED REFERRAL BELOW SHE CAN CHECK YOUR IUD Referrals: SANDEEP JARAMILLO MD [Staff Physician] - 3-5 Days Time of Disposition: 14:36
== END 2019-07-14 14:40 | disposition home or self-care (01) ==
LOC: ED 13:27
DX: R10.32 Left lower quadrant pain (principal); G89.29 Other chronic pain; Z88.0 Allergy status to penicillin
CPT/HCPCS: 36415; 80053; 84703; 85025

== ENCOUNTER 2020-11-19 09:56 | Emergency (ER) | payer BC ==
--- NOTE | 2020-11-19 10:09 | Event Note ---
ED Screening Note ED Screening Note: IUD lmp september 15 pmh none psh none rx claritan prn nasal spray irregular vag bleed no abd dc This initial assessment/diagnostic orders/clinical plan/treatment(s) is/are subject to change based on patients health status, clinical progression and re- assessment by fellow clinical providers in the ED. Further treatment and workup at subsequent clinical providers discretion. Patient/guardian urged not to elope from the ED as their condition may be serious if not clinically assessed and fatmata mclean. Initial orders include: urinalysis ro preg
[2020-11-19 10:12] VITALS: BP 127/89
[2020-11-19 11:05] LABS: HCG Qualitative,Urine Negative (Negative)
--- NOTE | 2020-11-19 11:13 | Emergency Department Report ---
ED Female HPI - General Chief complaint: Nausea/Vomiting/Diarrhea Stated complaint: VOMITING; NAUSEA Time Seen by Provider: 11/19/20 10:08 Source: patient Mode of arrival: Ambulatory Limitations: No Limitations - History of Present Illness Initial comments: 35 yo AA comes to ER with several week hx MOUNA and abd cramping. She has taken several home preg tests that have been neg. Mild abd cramping when she has the bleeding. Bleeding is light in natures. No back pain. No abd pain. No fever or chills. No abd normal discharge. Not concerned for STD. 1 sexual partner. Pt had IUD until 02/18. Pt has no obgyn. Last PAP 02-18. Ambulatory and non ill appearing on exam. MD Complaint: vaginal bleeding -: Gradual, week(s) Quality: cramping Consistency: intermittent Improves with: none Worsens with: none Are you Now?: No Associated Symptoms: denies other symptoms, vaginal bleeding. denies: vaginal discharge, abdominal pain, nausea/vomiting, fever/chills, headaches, loss of appetite, dysuria, hematuria, rash, seizure, shortness of breath, syncope, weakness - Related Data Sexually active: Yes Previous Rx's Medication Instructions Recorded Last Taken Type Melatonin/Pyridoxine [Melatonin 3 1 each PO QHS #30 tablet 11/09/15 Unknown Rx mg Tablet] Multivitamin with Folic Acid [One 400 mcg PO QDAY #30 tablet 11/09/15 07/25/17 21:00 Rx Daily Multivitamin Tablet] Metoclopramide [Reglan] 10 mg PO QID PRN #15 tab 12/16/16 Unknown Rx Docusate Sodium [Colace] 100 mg PO BID PRN #30 capsule 07/26/17 Unknown Rx Ibuprofen [Motrin] 600 mg PO Q8H PRN #30 tablet 07/26/17 Unknown Rx oxyCODONE /ACETAMINOPHEN [Percocet 1 tab PO Q6HR PRN #30 tablet 07/26/17 Unknown Rx 5/325] Allergies Allergy/AdvReac Type Severity Reaction Status Date / Time Penicillins Allergy Severe Hives Verified 03/23/17 13:20 ED Review of Systems ROS: Stated complaint: VOMITING; NAUSEA Other details as noted in HPI Comment: All other systems reviewed and negative ED Past Medical Hx - Past Medical History Previous Medical History?: Yes Hx Hypertension: No Hx Congestive Heart Failure: No Hx Diabetes: No Hx Deep Vein Thrombosis: No Hx Renal Disease: No Hx Sickle Cell Disease: No Hx Seizures: No Hx Asthma: No Hx COPD: No Hx HIV: No Additional medical history: HPV - Surgical History Past Surgical History?: No - Family History Family history: no significant - Social History Smoking Status: Current Every Day Smoker Substance Use Type: None - Medications Home Medications: Home Medications Medication Instructions Recorded Confirmed Last Taken Type Melatonin/Pyridoxine [Melatonin 3 1 each PO QHS #30 tablet 11/09/15 07/26/17 Unknown Rx mg Tablet] Multivitamin with Folic Acid [One 400 mcg PO QDAY #30 tablet 11/09/15 07/26/17 07/25/17 21:00 Rx Daily Multivitamin Tablet] Metoclopramide [Reglan] 10 mg PO QID PRN #15 tab 12/16/16 07/26/17 Unknown Rx Docusate Sodium [Colace] 100 mg PO BID PRN #30 capsule 07/26/17 Unknown Rx Ibuprofen [Motrin] 600 mg PO Q8H PRN #30 tablet 07/26/17 Unknown Rx oxyCODONE /ACETAMINOPHEN [Percocet 1 tab PO Q6HR PRN #30 tablet 07/26/17 Unknown Rx 5/325] ED Physical Exam - General Limitations: No Limitations General appearance: alert, in no apparent distress - Head Head exam: Present: atraumatic, normocephalic - Eye Eye exam: Present: normal appearance - ENT ENT exam: Present: mucous membranes moist - Neck Neck exam: Present: normal inspection - Respiratory Respiratory exam: Present: normal lung sounds bilaterally. Absent: respiratory distress - Cardiovascular Cardiovascular Exam: Present: regular rate, normal rhythm, other (hr 90). Absent: systolic murmur, diastolic murmur, rubs, gallop - GI/Abdominal GI/Abdominal exam: Present: soft, normal bowel sounds - Extremities Exam Extremities exam: Present: normal inspection - Back Exam Back exam: Present: normal inspection - Neurological Exam Neurological exam: Present: alert, oriented X3 - Psychiatric Psychiatric exam: Present: normal affect, normal mood - Skin Skin exam: Present: warm, dry, intact, normal color. Absent: rash ED Course Vital Signs 11/19/20 10:05 Temperature 99 F Pulse Rate 112 H Respiratory 16 Rate Blood Pressure 127/89 [Right] O2 Sat by Pulse 98 Oximetry ED Medical Decision Making - Medical Decision Making Lab Results 11/19/20 Range/Units Unknown Urine Color Yellow (Yellow) Urine Turbidity Clear (Clear) Urine pH 5.0 (5.0-7.0) Ur Specific [place] 1.029 (1.003-1.030) Urine Protein 30 mg/dl (Negative) mg/dL Urine Glucose (UA) Neg (Negative) mg/dL Urine Ketones Neg (Negative) mg/dL Urine Blood Mod (Negative) Urine Nitrite Neg (Negative) Ur Reducing Substances Not Reportable Urine Bilirubin Neg (Negative) Urine Ictotest Not Reportable Urine Urobilinogen < 2.0 (<2.0) mg/dL Ur Leukocyte Esterase Neg (Negative) Urine WBC (Auto) 2.0 (0.0-6.0) /HPF Urine RBC (Auto) 10.0 (0.0-6.0) /HPF U Epithel Cells (Auto) 11.0 (0-13.0) /HPF Urine Mucus 3+ /HPF Urine HCG, Qual Negative (Negative) Vital Signs 11/19/20 10:05 Temperature 99 F Pulse Rate 112 H Respiratory 16 Rate Blood Pressure 127/89 [Right] O2 Sat by Pulse 98 Oximetry preg neg no nitirates/leuks in urine HR on exam 90 pt dc to home with obgyn follow up for her DUB. She verbalizes understanding of plan of care and need to follow up. - Differential Diagnosis ro preg Critical care attestation.: If time is entered above; I have spent that time in minutes in the direct care of this critically ill patient, excluding procedure time. ED Disposition Clinical Impression: Irregular menses Disposition: DC-01 TO HOME OR SELFCARE Is pt being admited?: No Does the pt Need Aspirin: No Condition: Stable Instructions: Abnormal Uterine Bleeding Additional Instructions: preg neg no infection in urine Referrals: HECTOR WALKER MD [Staff Physician] - 3-5 Days Forms: Work/School Release Form(ED) Time of Disposition: 11:17
[2020-11-19 11:14] LABS: Bilirubin,Urine NEG (Negative); Blood,Urine MOD (Negative); Color,Urine Yellow (Yellow); Mucus,Urine 3+ /HPF; Urobilinogen,Urine < 2.0 mg/dL (<2.0)
== END 2020-11-19 11:19 | disposition home or self-care (01) ==
LOC: ED 09:56
DX: N92.6 Irregular menstruation, unspecified (principal); F17.200 Nicotine dependence, unspecified, uncomplicated; Z79.899 Other long term (current) drug therapy; Z88.0 Allergy status to penicillin
CPT/HCPCS: 81001; 81025